=== PATIENT | female | born 1955 | race Caucasian/White ===

== ENCOUNTER 2016-12-22 14:20 | Emergency (ER) | payer BC ==
[~2016-12-22] VITALS: Ht 162.6 cm; Wt 104.5 kg
[~2016-12-22 14:20] MED LIST: DICL75TA2 PO; IBUP-1502 PO; VENL75TA PO
[2016-12-22] MEDS ORDERED: PANT40TA5 PO (14:59)
[2016-12-22] MEDS ORDERED: ONDANSETRON ODT 4 MG ONE (15:27)
[2016-12-22] MEDS ORDERED: OXYcodone/APAP 5/325MG TABLET ONE (15:27)
[2016-12-22] MEDS ORDERED: ONDANSETRON ODT 4 MG PO ONE (15:30)
[2016-12-22] MEDS ORDERED: OXYcodone/APAP 5/325MG TABLET PO ONE (15:30)
[2016-12-22] MEDS ORDERED: ONDANSETRON 2MG/ML, 2ML IVPush ONE (15:30)
[2016-12-22] MEDS ORDERED: SODIUM CHLORIDE FLUSH 10ML SYR IVF ONE (15:30)
[2016-12-22 15:34] LABS: BLOOD UREA NITROGEN 9 mg/dL (7-18)
[2016-12-22 15:39] LABS: ASPARTATE AMINO TRANSFERASE 38 U/L (15-37)
[2016-12-22 17:16] VITALS: BP 121/45
== END 2016-12-22 18:05 | disposition home or self-care (01) ==
LOC: ED 17:00
DX: M25.562 Pain in left knee (principal); R10.84 Generalized abdominal pain; M25.561 Pain in right knee; E03.9 Hypothyroidism, unspecified
CPT/HCPCS: 36415; 73564; 73610; 80053; 83690; 85025; 93005; 99285; Q0162

== ENCOUNTER → 2021-03-26 | Outpatient (CLI) | payer BC ==
[~2021-03-26] MED LIST changes: +ACET-76 PO; +ACET325T26 PO; +CALCIUM PO; +CHOL10003 PO; +CHOL4PAC2 PO; -DICL75TA2 PO; +DICL75TA3 PO; +ESCI10TA97 PO; +ESTR42.58 VG; +FURO20TA3 PO; +GABA300C10 PO; +HYDR200T72 PO; -IBUP-1502 PO; +LEVO112T4 PO; +LIDO700A42 TP; +MELA3TAB31 PO; +NIFE10CA49 PO; +NIFE30TA13 PO; +OXYC5CAP2 PO; +PANT40TA6 PO; +TIZA4CAP PO; +TRIA15OI TP; +VIT. D; +[UNRECOGNIZED DRUG - CODE] PO; +[UNRECOGNIZED DRUG - CODE] PO
[2021-03-26 13:10] LABS: ALBUMIN 3.7 g/dL (3.4-5.0); ANION GAP 7 mmol/L (5-15); CALCIUM 8.4 mg/dL (8.5-10.1); CHLORIDE 102 mmol/L (98-107)
[2021-03-26 13:13] LABS: ALANINE AMINOTRANSFERASE 20 U/L (12-78); ALKALINE PHOSPHATASE 90 U/L (45-117); BILIRUBIN,TOTAL 0.8 mg/dL (0.2-1.0); CREATININE 0.81 mg/dL (0.55-1.02); TOTAL PROTEIN 8.3 g/dL (6.4-8.2)
== END | disposition home or self-care (01) ==
LOC: STAR 08:00 → EDSTATUS 03-28 09:00
PROVIDERS: ATTEND Internal Medicine Gastroenterology
DX: Z01.818 Encounter for other preprocedural examination (principal); Z20.822 Contact with and (suspected) exposure to COVID-19; R13.19 Other dysphagia; K52.9 Noninfective gastroenteritis and colitis, unspecified
CPT/HCPCS: 36415; 80053; 93005; U0003; U0005